=== PATIENT | female | born 1960 | race African-American/Black ===

== ENCOUNTER 2022-03-09 11:44 | Outpatient (CLI) | payer OTHER | END 2022-03-09 11:45 | disposition home or self-care (01) | LOC: NAV RAD 11:44 | PROVIDERS: ATTEND Family Medicine | DX: M48.061 Spinal stenosis, lumbar region without neurogenic claudication (principal); M51.36 Other intervertebral disc degeneration, lumbar region; M17.0 Bilateral primary osteoarthritis of knee | CPT/HCPCS: 72100 ==